=== PATIENT | female | born 1960 | race Caucasian/White ===

== ENCOUNTER 2019-04-18 20:39 | Emergency (ER) | payer OTHER ==
[~2019-04-18] VITALS: Ht 157.5 cm; Wt 45.4 kg
[2019-04-18 20:53] VITALS: BP 108/74
[2019-04-18] MEDS ORDERED: cefTRIAXone SOD 1,000 MG VL IM ONE (21:30)
[2019-04-18] MEDS ORDERED: BACLOFEN 10 MG TAB PO ONE (21:30)
== END 2019-04-18 21:35 | disposition home or self-care (01) ==
LOC: ER 20:39
DX: S01.01XA Laceration without foreign body of scalp, initial encounter (principal); Z88.6 Allergy status to analgesic agent; Z88.0 Allergy status to penicillin; W18.39XA Other fall on same level, initial encounter; Y93.89 Activity, other specified; Y99.8 Other external cause status; Y92.89 Other specified places as the place of occurrence of the external cause
CPT/HCPCS: 12002; 96372; 99283; J0696

== ENCOUNTER 2019-05-02 15:11 | Emergency (ER) | payer OTHER ==
[~2019-05-02] VITALS: Ht 157.5 cm; Wt 45.4 kg
[2019-05-02 15:24] VITALS: BP 101/63
== END 2019-05-02 16:35 | disposition home or self-care (01) ==
LOC: ER 15:14
DX: S01.01XD Laceration without foreign body of scalp, subsequent encounter (principal); Z48.02 Encounter for removal of sutures; Z88.6 Allergy status to analgesic agent; Z88.0 Allergy status to penicillin; X58.XXXD Exposure to other specified factors, subsequent encounter

== ENCOUNTER 2022-09-01 04:14 | Inpatient (IN) | payer OTHER ==
[~2022-09-01] VITALS: Ht 156.2 cm; Wt 52.2 kg
[2022-09-01 05:36] LABS: Basophils # (auto) 0 10 ^3/uL (0-0.2); Basophils % (auto) 0.4 % (0.0-2.0); Eosinophils # (auto) 0 10 ^3/uL (0-0.8); Eosinophils % (auto) 0.6 % (0.0-7.0); Hematocrit 27.4 % (36.0-46.0); Hemoglobin 9.1 g/dL (12.2-16.2); Lymphocytes # (auto) 0.5 10 ^3/uL (0.4-5.4); Lymphocytes % (auto) 5.9 % (10.0-50.0); Mean Corpuscular Hemoglobin 32.4 pg (28.0-32.0); Mean Corpuscular Hgb Conc. 33.4 g/dL (32.0-36.0); Monocytes # (auto) 0.8 10 ^3/uL (0-1.3); Monocytes % (auto) 9.5 % (0.0-12.0); Neutrophils % (auto) 83.6 % (37.0-80.0); Red Blood Cells 2.82 10^6/uL (4.0-5.20); White Blood Cell 8.3 10^3/uL (4.4-10.8)
[2022-09-01 05:51] LABS: INR 1.06 (0.9-1.15); Partial Thromboplastin Time 28.3 sec (24.6-33.4)
[2022-09-01 05:55] LABS: BUN/Creatinine Ratio 13.3; Calcium 7.8 mg/dL (8.5-10.1); Potassium 4.4 mmol/L (3.5-5.1)
[2022-09-01 05:57] LABS: Bilirubin, Total 0.4 mg/dL (0.2-1.0); Total Protein 5.5 g/dL (6.4-8.2)
[2022-09-01] MEDS ORDERED: NALOXONE HCL 1MG/ML 2ML SYRINGE IV ONE (06:00)
[2022-09-01 07:23] LABS: Alcohol, Urine < 3.0 mg/dL (0-10); Amphetamine Screen, Urine NEGATIVE (NEGATIVE); Barbiturate Scree,Urine NEGATIVE (NEGATIVE); Benzodiazephine Screen, Urine NEGATIVE (NEGATIVE); Cannabinoid Screen, Urine NEGATIVE (NEGATIVE); Cocaine Screen, Urine NEGATIVE (NEGATIVE); Opiate Scree,Urine NEGATIVE (NEGATIVE); Phencyclidine Screen, Urine NEGATIVE (NEGATIVE)
[2022-09-01 07:27] LABS: Urine Bacteria NONE SEEN /hpf (None Seen); Urine Blood 1+ /uL (Negative); Urine WBC 7 /hpf (0 - 5)
[2022-09-01] MEDS ORDERED: DOCUSATE SOD 100 MG CAP PO PRN (08:30)
[2022-09-01] MEDS ORDERED: ONDANSETRON HCL 4 MG/2 ML VIAL IV PRN (08:30)
[2022-09-01] MEDS ORDERED: MORPHINE SULFATE INJ 2 MG/ml SYRG IV PRN (08:30)
[2022-09-01] MEDS ORDERED: NITROGLYCERIN 0.4 MG SL TAB SL PRN (08:30)
[2022-09-01] MEDS: SODIUM CHLORIDE 0.9% 1,000 ML IV SCH ×2 (08:51→16:50)
[2022-09-01] MEDS: ENOXAPARIN SOD 40 MG/0.4 ML SYRINGE SC SCH (12:33)
[2022-09-01] MEDS: VENLAFAXINE HCL 37.5MG TABLET PO SCH (12:34)
[2022-09-01] MEDS: CIPROFLOXACIN 400MG/200ML 200 ML IV SCH ×2 (17:22→23:22)
[2022-09-01] MEDS: GABAPENTIN 300 MG CAP PO SCH ×2 (17:22→23:24)
[2022-09-01] MEDS ORDERED: HYDROcodone-ACET 5/325MG TAB PO PRN ×2 (17:45→19:00)
[2022-09-01] MEDS ORDERED: QUEtiapine FUMARATE 25 MG TAB PO ONE (22:00)
[2022-09-01 22:52] VITALS: BP 112/71
[2022-09-01 22:56] VITALS: BP 121/71
[2022-09-01] MEDS: PROPRANOLOL HCL 20 MG TAB PO SCH (23:24)
[2022-09-01] MEDS: busPIRone HCL 10 MG TAB PO SCH (23:24)
[2022-09-01] MEDS: LITHIUM CARBONATE 300 MG TAB PO SCH (23:25)
[2022-09-02] MEDS ORDERED: QUET1TAB11 PO (01:55)
[2022-09-02] MEDS ORDERED: LITH300C3 PO (01:55)
[2022-09-02] MEDS ORDERED: GABA-339 PO (01:55)
[2022-09-02] MEDS ORDERED: BUSP15TA60 PO (01:55)
[2022-09-02] MEDS ORDERED: VENL75CA78 PO (01:55)
[2022-09-02] MEDS ORDERED: BUSP10TA31 PO (01:55)
[2022-09-02] MEDS ORDERED: PROP20TA73 PO (01:55)
[2022-09-02] MEDS: traMADol HCL 50 MG TAB PO PRN ×3 (02:43→22:35)
[2022-09-02 04:40] VITALS: BP 121/67
[2022-09-02 05:30] LABS: Basophils # (auto) 0 10 ^3/uL (0-0.2); Hemoglobin 8.3 g/dL (12.2-16.2)
[2022-09-02 05:35] LABS: Basophils % (auto) 0.4 % (0.0-2.0); Eosinophils # (auto) 0.2 10 ^3/uL (0-0.8); Eosinophils % (auto) 2.1 % (0.0-7.0); Hematocrit 24.6 % (36.0-46.0); Lymphocytes # (auto) 0.7 10 ^3/uL (0.4-5.4); Lymphocytes % (auto) 9.4 % (10.0-50.0); Mean Corpuscular Hemoglobin 32.5 pg (28.0-32.0); Mean Corpuscular Hgb Conc. 33.6 g/dL (32.0-36.0); Mean Corpuscular Volume 96.6 fL (80.0-100.0); Monocytes # (auto) 0.8 10 ^3/uL (0-1.3); Monocytes % (auto) 10.2 % (0.0-12.0); Neutrophils # (auto) 5.7 10 ^3/uL (1.6-8.6); Neutrophils % (auto) 77.9 % (37.0-80.0); Red Blood Cells 2.54 10^6/uL (4.0-5.20); White Blood Cell 7.3 10^3/uL (4.4-10.8)
[2022-09-02 05:42] LABS: Albumin 2.5 g/dL (3.4-5.0); Calcium 8.3 mg/dL (8.5-10.1)
[2022-09-02 05:44] LABS: BUN/Creatinine Ratio 9.7
[2022-09-02 05:49] LABS: Bilirubin, Total 0.4 mg/dL (0.2-1.0); Total Protein 5.5 g/dL (6.4-8.2)
[2022-09-02] MEDS: SODIUM CHLORIDE 0.9% 1,000 ML IV SCH ×3 (06:16→22:27)
[2022-09-02] MEDS: GABAPENTIN 300 MG CAP PO SCH ×3 (06:16→21:07)
[2022-09-02 09:00] VITALS: BP_SYST 0; BP_SYST 104; BP_SYST 123; BP_DIAS 0; BP_DIAS 64; BP_DIAS 90
[2022-09-02] MEDS: VENLAFAXINE HCL 37.5MG TABLET PO SCH (10:14)
[2022-09-02] MEDS: CIPROFLOXACIN 400MG/200ML 200 ML IV SCH ×2 (10:14→21:09)
[2022-09-02] MEDS: PANTOPRAZOLE 40 MG TAB PO SCH (10:15)
[2022-09-02] MEDS: ENOXAPARIN SOD 40 MG/0.4 ML SYRINGE SC SCH (10:15)
[2022-09-02] MEDS: busPIRone HCL 10 MG TAB PO SCH ×2 (10:15→21:08)
[2022-09-02] MEDS: PROPRANOLOL HCL 20 MG TAB PO SCH ×2 (10:17→21:20)
[2022-09-02 12:54] VITALS: BP 117/69
[2022-09-02 15:58] VITALS: BP 91/60
[2022-09-02] MEDS: LITHIUM CARBONATE 300 MG TAB PO SCH (21:08)
[2022-09-02 22:00] VITALS: BP 118/78
[2022-09-03] MEDS: SODIUM CHLORIDE 0.9% 1,000 ML IV SCH ×2 (03:00→07:53)
[2022-09-03] MEDS: traMADol HCL 50 MG TAB PO PRN (03:33)
[2022-09-03 05:30] VITALS: BP 129/90
[2022-09-03] MEDS: CIPROFLOXACIN 400MG/200ML 200 ML IV SCH (07:41)
[2022-09-03] MEDS: GABAPENTIN 300 MG CAP PO SCH ×2 (07:41→15:01)
[2022-09-03] MEDS: ENOXAPARIN SOD 40 MG/0.4 ML SYRINGE SC SCH (07:41)
[2022-09-03] MEDS: PANTOPRAZOLE 40 MG TAB PO SCH (07:41)
[2022-09-03] MEDS: VENLAFAXINE HCL 37.5MG TABLET PO SCH (07:41)
[2022-09-03] MEDS: busPIRone HCL 10 MG TAB PO SCH (07:42)
[2022-09-03] MEDS: PROPRANOLOL HCL 20 MG TAB PO SCH (07:43)
[2022-09-03 09:00] VITALS: BP 126/77
[2022-09-03 12:59] VITALS: BP_SYST 101; BP_SYST 107; BP_DIAS 64; BP_DIAS 67
[2022-09-03 16:39] VITALS: BP 120/70
[2022-09-03 17:22] VITALS: BP 129/90
[2022-09-03] MEDS ORDERED: TRAM50TA2 PO (18:05)
== END 2022-09-03 17:35 | disposition home or self-care (01) | DRG 812 ==
LOC: ER 04:14 → EDBD 04:14 → TELE 08:22 → TELE-CENTR 22:25
PROVIDERS: ADMIT Nurse Practitioner; ATTEND Nurse Practitioner
DX: T40.601A Poisoning by unspecified narcotics, accidental (unintentional), initial encounter (principal); G93.41 Metabolic encephalopathy; I95.9 Hypotension, unspecified; D32.9 Benign neoplasm of meninges, unspecified; D64.9 Anemia, unspecified; E86.0 Dehydration; N39.0 Urinary tract infection, site not specified; F31.9 Bipolar disorder, unspecified; Z96.652 Presence of left artificial knee joint; Z87.891 Personal history of nicotine dependence; Z20.822 Contact with and (suspected) exposure to COVID-19; Z88.1 Allergy status to other antibiotic agents; Z88.0 Allergy status to penicillin; R53.1 Weakness
CPT/HCPCS: 36415; 70450; 70551; 71045; 71275; 80053; 80307; 81001; 83605; 83880; 84436; 84443; 84480; 84484; 85025; 85610; 85730; 87426; 93005; 93306; 93886; 96374; 97163; G0378; J2405